=== PATIENT | male | born 1935 | race Caucasian/White ===

== ENCOUNTER 2021-09-10 15:15 | Emergency (ER) | payer MEDICARE ==
[~2021-09-10] VITALS: Ht 188 cm; Wt 98.6 kg
[2021-09-10] MEDS ORDERED: LIDOCAINE 1% Multi-Dose 20 ML VIAL. ONE (15:20)
[2021-09-10] MEDS ORDERED: LIDOCAINE 1%/EPI 1:100,000 20 ML VIAL. ONE (15:21)
[2021-09-10] MEDS ORDERED: IV NORMAL SALINE 1000ML BAG 1,000 ML IV ONE (15:45)
[2021-09-10 15:49] LABS: BASO % 0 % (0-3); EOS # 0.2 x10^3/uL (0.0-0.7); EOS % 2 % (0-3); HEMATOCRIT 36.1 % (39.0-53.0); LYMPH # 2.6 x10^3/uL (1.0-4.8); LYMPH % 27 % (24-48); MEAN CORPUSCULAR HEMOGLOBIN 28 pg (25-35); MEAN CORPUSCULAR HGB CONC 33 g/dL (31-37); MEAN CORPUSCULAR VOLUME 85 fL (79-100); MONO # 0.8 x10^3/uL (0.0-1.1); MONO % 9 % (0-9); NEUT % 62 % (31-73); PLATELET COUNT 416 x10^3/uL (140-400); RED BLOOD COUNT 4.26 x10^6/uL (4.30-5.70); RED CELL DISTRIBUTION WIDTH 17.2 % (11.5-14.5); WHITE BLOOD COUNT 9.6 x10^3/uL (4.0-11.0)
[2021-09-10 15:55] LABS: CALCIUM 9.5 mg/dL (8.5-10.1); CREATININE 1.7 mg/dL (0.7-1.3); GFR 38.6; POTASSIUM 4.9 mmol/L (3.5-5.1)
[2021-09-10 15:58] LABS: PROTHROMBIN TIME PATIENT 28.9 SEC (11.7-14.0)
[2021-09-10 16:01] LABS: ALBUMIN 3.3 g/dL (3.4-5.0); TOTAL BILIRUBIN 0.6 mg/dL (0.2-1.0); TOTAL PROTEIN 6.5 g/dL (6.4-8.2)
--- NOTE | 2021-09-10 16:09 | PHYS DOC ---
Past Medical History Additional Past Medical Histor: GOUT Past Surgical History: Appendectomy, Hip Replacement Additional Past Surgical Histo: CORD DECOMPRESSION General Adult EDM: Chief Complaint: LACERATION/AVULSION HPI: HPI: Patient is a 86 year old male who is right-handed presents to the ER after lacerating his left wrist with a chainsaw. Patient states that he was trying to chop off some limbs off of a tree. Patient states that his tetanus is up-to-date as he cuts himself yet accidentally on multiple occasions. 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 Patient states his last INR was 2.5. Patient denies any numbness or tingling. Review of Systems: Review of Systems: Constitutional: Denies fever or chills. Eyes: Denies change in visual acuity. HENT: Denies nasal congestion or sore throat. [ Respiratory: Denies cough or shortness of breath. Cardiovascular: Denies chest pain or edema. [ GI: Denies abdominal pain, nausea, vomiting, bloody stools or diarrhea. [ : Denies dysuria. [ Musculoskeletal: Denies back pain or joint pain. [ Integument: Laceration of the left wrist denies rash. Neurologic: Denies headache, focal weakness or sensory changes. [] Endocrine: Denies polyuria or polydipsia. Lymphatic: Denies swollen glands. [ Psychiatric: Denies depression or anxiety. Heart Score: C/O Chest Pain: No Risk Factors: Risk Factors: DM, Current or recent (<one month) smoker, HTN, HLP, family history of CAD, obesity. Risk Scores: Score 0 - 3: 2.5% MACE over next 6 weeks - Discharge Home Score 4 - 6: 20.3% MACE over next 6 weeks - Admit for Clinical Observation Score 7 - 10: 72.7% MACE over next 6 weeks - Early Invasive Strategies Current Medications: Current Medications Medications (Trade) Dose Ordered Sig/Linnette Start Time Stop Time Status Last Admin Dose Admin Cefazolin Sodium/ Dextrose 50 ml @ 100 mls/hr 1X ONCE 09/10/21 16:00 09/10/21 16:29 Lidocaine HCl (Lidocaine 1% 20ml Vial) 20 ml STK-MED ONCE 09/10/21 15:20 09/10/21 15:20 DC Lidocaine/ Epinephrine (LIDOCAINE 1%-EPI 1:100,000 Multi-Dose) 20 ml STK-MED ONCE 09/10/21 15:21 09/10/21 15:21 DC Sodium Chloride 1,000 ml @ 1,000 mls/hr 1X ONCE 09/10/21 15:45 09/10/21 16:44 09/10/21 15:40 1,000 MLS/HR Allergies: Allergies: Allergies Coded Allergies Type Severity Reaction Last Updated Verified No Known Drug Allergies 09/10/21 No Physical Exam: PE: Constitutional: Well developed, well nourished, no acute distress, non-toxic appearance. [] HENT: Normocephalic, atraumatic, bilateral external ears normal, oropharynx moist, no oral exudates, nose normal. [] Eyes: PERRLA, EOMI, conjunctiva normal, no discharge. Neck: Normal range of motion, no tenderness, supple, no stridor. Cardiovascular:Heart rate regular rhythm, no murmur Lungs & Thorax: Bilateral breath sounds clear to auscultation Abdomen: Bowel sounds normal, soft, no tenderness, no masses, no pulsatile masses. Skin: Patient has a laceration on the left ulnar aspect of the wrist measuring a pproximately 5 cm, warm, dry, no erythema, no rash. Back: No tenderness, no CVA tenderness. [ Extremities: Full range of motion in the fingers with extension and flexion. No tenderness, no cyanosis, no clubbing, ROM intact, no edema. [] Neurologic: Mild subjective numbness of the dorsum of the hand alert and oriented X 3, normal motor function, normal sensory function, no focal deficits noted. [] Psychologic: Affect normal, judgement normal, mood normal. [] Current Patient Data: Labs: Laboratory Tests Test 09/10/21 15:30 White Blood Count 9.6 x10^3/uL (4.0-11.0) Red Blood Count 4.26 x10^6/uL (4.30-5.70) L Hemoglobin 12.0 g/dL (13.0-17.5) L Hematocrit 36.1 % (39.0-53.0) L Mean Corpuscular Volume 85 fL (79-100) Mean Corpuscular Hemoglobin 28 pg (25-35) Mean Corpuscular Hemoglobin Concent 33 g/dL (31-37) Red Cell Distribution Width 17.2 % (11.5-14.5) H Platelet Count 416 x10^3/uL (140-400) H Neutrophils (%) (Auto) 62 % (31-73) Lymphocytes (%) (Auto) 27 % (24-48) Monocytes (%) (Auto) 9 % (0-9) Eosinophils (%) (Auto) 2 % (0-3) Basophils (%) (Auto) 0 % (0-3) Neutrophils # (Auto) 6.0 x10^3/uL (1.8-7.7) Lymphocytes # (Auto) 2.6 x10^3/uL (1.0-4.8) Monocytes # (Auto) 0.8 x10^3/uL (0.0-1.1) Eosinophils # (Auto) 0.2 x10^3/uL (0.0-0.7) Basophils # (Auto) 0.0 x10^3/uL (0.0-0.2) Prothrombin Time 28.9 SEC (11.7-14.0) H Prothrombin Time INR 2.8 (0.8-1.1) H Laboratory Tests 09/10/21 15:30 Vital Signs: Vital Signs Date Time Temp Pulse Resp B/P (MAP) Pulse Ox O2 Delivery O2 Flow Rate FiO2 09/10/21 15:15 76 20 77/58 (64) 96 Room Air EKG: EKG: [] Patient is sinus rhythm of 70 normal EKG QTC 417 a ND interval 210. Radiology/Procedures: Radiology/Procedures: []Exam: XR LT WRIST 3VIEWS History: Laceration. Rule out fracture. Comparison: None. Findings: Osseous mineralization is normal. No acute fracture or dislocaton. Advanced the joint space narrowing and subchondral sclerosis of the triscaphe joint. Widening of the scapholunate interval and dorsal tilt of the lunate. Irregular soft tissues about the wrist especially at the radial aspect of the wrist suspect reg ion of laceration. A few small punctate densities projecting at the radial aspect may represent foreign bodies or superficial debris. Impression: 1. No acute osseous abnormality of the left wrist. A few punctate densities projecting at the radial aspect of the wrist at the level of the metaphysis may represent superficial debris or subcutaneous foreign bodies. 2. 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 Course & Med Decision Making: Course & Med Decision Making Pertinent Labs and Imaging studies reviewed. (See chart for details) [] Laceration was repaired. Patient's tetanus is up-to-date. Patient will be discharged with antibiotics. Dragon Disclaimer: Dragon Disclaimer: This electronic medical record was generated, in whole or in part, using a voice recognition dictation system. Laceration Repair Lac Repair Indication: [] Procedure: The patient was placed in the appropriate position and anesthesia around the left wrist with lidocaine with epi 1%. Approximately 4 mL of lidocaine were used. . The area was then cleaned and debrided with normal saline parsley 1 L.]. The laceration was closed with 3-0 nylon sutures 7 in total were placed with interrupted technique] The wound area was then dressed with a pressure dressing and Covan Total repaired wound length: 5 Other Items: The patient tolerated the procedure well Complications: [none Departure Departure Scripts Oxycodone/Apap 5-325 (PERCOCET 5-325 MG TABLET ) 1 Each Tablet 1 TAB PO PRN Q6HRS PRN for PAIN, #12 TAB 0 Refills Prov: BRITTANIE DELEON DO 09/10/21 Cephalexin (KEFLEX) 500 Mg Capsule 1 CAP PO TID for 7 Days, #21 CAP Prov: BRITTANIE DELEON DO 09/10/21 BRITTANIE DELEON DO Sep 10, 2021 16:09
[2021-09-10 16:31] VITALS: BP 161/70
[2021-09-10] MEDS ORDERED: CEPH500C PO (16:34)
[2021-09-10] MEDS ORDERED: OXYC1TAB15 PO (16:35)
--- NOTE | 2021-09-10 16:45 | RAD ---
Exam: XR LT WRIST 3VIEWS History: Laceration. Rule out fracture. Comparison: None. Findings: Osseous mineralization is normal. No acute fracture or dislocaton. Advanced the joint space narrowing and subchondral sclerosis of the triscaphe joint. Widening of the scapholunate interval and dorsal t ilt of the lunate. Irregular soft tissues about the wrist especially at the radial aspect of the wris t suspect region of laceration. A few small punctate densities projecting at the radial aspect may re present foreign bodies or superficial debris. Impression: 1. No acute osseous abnormality of the left wrist. A few punctate densities projecting at the radial aspect of the wrist at the level of the metaphysis may represent superficial debris or subcutaneous foreign bodies. 2. 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 Electronically signed by: Richie Ortega MD (09/10/2021 4:43 PM) [id number]
--- NOTE | 2021-09-10 18:47 | EKG ---
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
== END 2021-09-10 17:19 | disposition home or self-care (01) ==
LOC: ER 15:15
DX: S61.512A Laceration without foreign body of left wrist, initial encounter (principal); M10.9 Gout, unspecified; Z86.718 Personal history of other venous thrombosis and embolism; Z79.01 Long term (current) use of anticoagulants; Y28.8XXA Contact with other sharp object, undetermined intent, initial encounter; Y93.89 Activity, other specified; Y92.89 Other specified places as the place of occurrence of the external cause; Y99.8 Other external cause status
CPT/HCPCS: 12002; 36415; 73120; 80053; 85025; 85610; 93005; 96365; 99284; J0690; J7030

== ENCOUNTER 2021-09-17 16:17 | Emergency (ER) | payer MEDICARE ==
[~2021-09-17] VITALS: Ht 188 cm; Wt 95.7 kg
[~2021-09-17 16:17] MED LIST: CEPH500C PO; OXYC1TAB15 PO
[2021-09-17 16:31] VITALS: BP 190/91
--- NOTE | 2021-09-17 16:46 | PHYS DOC ---
Past Medical History Additional Past Medical Histor: GOUT Past Surgical History: Appendectomy, Hip Replacement, Other Additional Past Surgical Histo: CORD DECOMPRESSION Smoking Status: Never Smoker Alcohol Use: Occasionally General Adult EDM: Chief Complaint: SUTURE/STAPLE REMOVAL HPI: HPI: Patient is a 86 year old presents for wound check and possible suture removal. Patient was seen here in the ER after he cut his forearm using a chainsaw. Patient still has residual paresthesias of the dorsal aspect of his thumb. Patient has been taking his antibiotics no acute changes. Review of Systems: Review of Systems: Constitutional: Denies fever or chills. [] Eyes: Denies change in visual acuity. [] HENT: Denies nasal congestion or sore throat. [] Respiratory: Denies cough or shortness of breath. [] Cardiovascular: Denies chest pain or edema. [] GI: Denies abdominal pain, nausea, vomiting, bloody stools or diarrhea. [] : Denies dysuria. [] Musculoskeletal: Denies back pain or joint pain. [] Integument: Denies rash. [] Neurologic: Denies headache, focal weakness or sensory changes. [] Endocrine: Denies polyuria or polydipsia. [] Lymphatic: Denies swollen glands. [] Psychiatric: Denies depression or anxiety. [] Heart Score: C/O Chest Pain: No Risk Factors: Risk Factors: DM, Current or recent (<one month) smoker, HTN, HLP, family history of CAD, obesity. Risk Scores: Score 0 - 3: 2.5% MACE over next 6 weeks - Discharge Home Score 4 - 6: 20.3% MACE over next 6 weeks - Admit for Clinical Observation Score 7 - 10: 72.7% MACE over next 6 weeks - Early Invasive Strategies Allergies: Allergies: Allergies Coded Allergies Type Severity Reaction Last Updated Verified No Known Drug Allergies 09/10/21 No Physical Exam: PE: Constitutional: Well developed, well nourished, no acute distress, non-toxic appearance. [] HENT: Normocephalic, atraumatic, bilateral external ears normal, oropharynx moist, no oral exudates, nose normal. [] Eyes: PERRLA, EOMI, conjunctiva normal, no discharge. [] Neck: Normal range of motion, no tenderness, supple, no stridor. [] Cardiovascular:Heart rate regular rhythm, no murmur [] Lungs & Thorax: Bilateral breath sounds clear to auscultation [] Abdomen: Bowel sounds normal, soft, no tenderness, no masses, no pulsatile masses. [] Skin: Patient's incision appears clean dry and intact tact. Appears to need more time for healing mild edema. Warm, dry, no erythema, no rash. [] Back: No tenderness, no CVA tenderness. [] Extremities: No tenderness, no cyanosis, no clubbing, ROM intact, no edema. [] Neurologic: Alert and oriented X 3, normal motor function, normal sensory function, no focal deficits noted. [] Psychologic: Affect normal, judgement normal, mood normal. [] Current Patient Data: Vital Signs: Vital Signs Date Time Temp Pulse Resp B/P (MAP) Pulse Ox O2 Delivery O2 Flow Rate FiO2 09/17/21 16:31 97.9 73 16 190/91 (124) 98 Room Air 97.9 EKG: EKG: [] Radiology/Procedures: Radiology/Procedures: [] Course & Med Decision Making: Course & Med Decision Making Pertinent Labs and Imaging studies reviewed. (See chart for details) [] Instructed patient to return in 3 days after finishing his course of antibiotics and will reattempt suture removal. Dragon Disclaimer: You Disclaimer: This electronic medical record was generated, in whole or in part, using a voice recognition dictation system. Departure Departure Referrals: KAVON LANIER (PCP) BRITTANIE DELEON DO Sep 17, 2021 16:46
== END 2021-09-17 16:50 | disposition home or self-care (01) ==
LOC: ER 16:17
DX: S51.811D Laceration without foreign body of right forearm, subsequent encounter (principal); M10.9 Gout, unspecified; Y28.8XXD Contact with other sharp object, undetermined intent, subsequent encounter
CPT/HCPCS: 99281

== ENCOUNTER 2021-09-20 11:22 | Emergency (ER) | payer MEDICARE ==
[~2021-09-20] VITALS: Ht 188 cm; Wt 95.0 kg
[2021-09-20 11:30] VITALS: BP 154/76
[2021-09-20] MEDS ORDERED: BACITRACIN TOPICAL OINT PACKET. TP ONE (12:53)
--- NOTE | 2021-09-20 13:05 | PHYS DOC ---
Past Medical History Additional Past Medical Histor: GOUT Past Surgical History: Appendectomy, Hip Replacement, Other Additional Past Surgical Histo: CORD DECOMPRESSION Smoking Status: Never Smoker Alcohol Use: Occasionally General Adult EDM: Chief Complaint: SUTURE/STAPLE REMOVAL HPI: HPI: Patient is a 86 year old male who presents for suture removal. Review of Systems: Review of Systems: ROS negative or noncontributory except as mentioned in HPI. Heart Score: C/O Chest Pain: No Current Medications: Current Medications Medications (Trade) Dose Ordered Sig/Linnette Start Time Stop Time Status Last Admin Dose Admin Bacitracin (Bacitracin Zinc Oint Pkt) 1 pkt STK-MED ONCE 09/20/21 12:53 09/20/21 12:53 DC Allergies: Allergies: Allergies Coded Allergies Type Severity Reaction Last Updated Verified No Known Drug Allergies 09/10/21 No Physical Exam: PE: Constitutional: Well developed, well nourished, no acute distress, non-toxic appearance. Skin: Laceration to the left forearm appears to be healing well without signs of infection including erythema, discharge. Warm, dry, no erythema, no rash. Current Patient Data: Vital Signs: Vital Signs Date Time Temp Pulse Resp B/P (MAP) Pulse Ox O2 Delivery O2 Flow Rate FiO2 09/20/21 11:30 98.1 90 18 154/76 (102) 97 Room Air 98.1 Course & Med Decision Making: Course & Med Decision Making Pertinent Labs and Imaging studies reviewed. (See chart for details) Dragon Disclaimer: Dragon Disclaimer: This electronic medical record was generated, in whole or in part, using a voice recognition dictation system. Suture/Staple Removal Indication: Suture removal Procedure: The patient was placed in the appropriate position and 7 simple int errupted sutures were removed without difficulty. Other items: The patient tolerated the procedure very well. Complications: No complications. Departure Departure Impression: Primary Impression: Encounter for removal of sutures Disposition: HOME / SELF CARE / HOMELESS Condition: IMPROVED Referrals: KAVON LANIER (PCP) Patient Instructions: Suture Removal Additional Instructions: EMERGENCY DEPARTMENT GENERAL DISCHARGE INSTRUCTIONS Thank you for coming to [facility] Emergency Department (ED) today and trusting us with you care. We trust that you had a positive experience in our Emergency Department. If you wish to speak to the department management, you may call the director at . YOUR FOLLOW UP INSTRUCTIONS ARE FOLLOWS: 1. Follow up with your primary care doctor. If you do not have a primary doctor, please ask for a resource list of physicians or clinics that may be able to assist you with follow up care. 2. The emergency provider has interpreted your imaging studies, if any were ordered. The radiology product distribution specialist also reviewed them. If there is a change in the findings, you will be notified in 48 hours when at all possible. 3. If a lab test or culture has been done, your results will be reviewed and you will be notified if you need a change in treatment. 4. Follow instructions verbalized to you and refer to the printouts if needed. ADDITIONAL INSTRUCTIONS AND INFORMATION: 1. Your care today has been supervised by a physician who is specially trained in emergency care. Many problems require more than one evaluation for a comp lete diagnosis and treatment. We recommend that you schedule your follow up appointment as recommended to ensure complete treatment of you illness or injury. If you are unable to obtain follow up care and continue to have a problem, or if your condition worsens, we recommend that you return to the ED. 2. We are not able to safely determine your condition over the phone nor are we able to give sound medical advice over the phone. For these safety reasons, if you call for medical advice we will ask you to come to the ED for further evaluation. 3. If you have any questions regarding these discharge instructions please call the ED at . SAFETY INFORMATION: In the interest of safety, wellness, and injury prevention; we encourage you to wear your seat belt, if you smoke; quite smoking, and we encourage family to use a protective helmet for bicycling and other sporting events that present an increased risk for head injury. IF YOUR SYMPTOMS WORSEN OR NEW SYMPTOMS DEVELOP, OR YOU HAVE CONCERNS ABOUT YOUR CONDITION; OR IF YOUR CONDITION WORSENS WHILE YOU ARE WAITING FOR YOUR FOLLOW UP APPOINTMENT; EITHER CONTACT YOUR PRIMARY CARE DOCTOR, THE PHYSICIAN WHOSE NAME AND NUMBER YOU WERE GIVEN, OR RETURN TO THE ED IMMEDIATELY. FABIANA GIMENEZ Sep 20, 2021 13:05
== END 2021-09-20 13:20 | disposition home or self-care (01) ==
LOC: ER 11:22
DX: S51.812D Laceration without foreign body of left forearm, subsequent encounter (principal); X58.XXXD Exposure to other specified factors, subsequent encounter
CPT/HCPCS: 99281